=== PATIENT | female | born 1985 | race Two or more races ===

== ENCOUNTER 2023-06-05 11:15 | Emergency (ER) | payer OTHER ==
[~2023-06-05] VITALS: Ht 167.6 cm; Wt 113.4 kg
[2023-06-05] MEDS ORDERED: BUTALB/ACETAMINOPHEN/CAFFEINE 1 TAB TABLET PO ONE (12:15)
[2023-06-05] MEDS ORDERED: ONDANSETRON HCL 2 MG/ML VIAL IV ONE (12:15)
[2023-06-05] MEDS ORDERED: MEPERIDINE HCL/PF 50 MG/ML VIAL IM ONE (12:15)
[2023-06-05] MEDS ORDERED: RINGERS SOLUTION,LACTATED 1,000 ML IV SCH (12:15)
[2023-06-05 12:51] LABS: HEMATOCRIT 35.4 % (36.0-45.00); HEMOGLOBIN 12.4 g/dL (12.0-15.00); MEAN CELL VOLUME 88.6 fL (80.00-100.00); MEAN CORPUSCULAR HEMOGLOBIN 30.9 pg (27.00-32.0); MEAN CORPUSCULAR HGB CONC 34.9 g/dl (32.0-36.0); PLATELET COUNT 212 K/uL (150-450); RED CELL DISTRIBUTION WIDTH 14.3 % (11.5-14.5)
[2023-06-05 14:03] LABS: URINE APPEARANCE Cloudy; URINE BILIRRUBIN Negative (NEGATIVE); URINE BLOOD Negative; URINE COLOR Dark Yellow; URINE GLUCOSE Negative (NEGATIVE); URINE LEUKOCYTE Small; URINE NITRATE Negative; URINE PROTEIN 30 (NEGATIVE)
[2023-06-05 14:06] LABS: URINE BACTERIA 4300.3 uL (0.0-1933); URINE EPITHELIAL CELLS 94.1 uL (0.0-38.8); URINE RBC 23.7 uL (0.0-20.8); URINE WBC 57.5 uL (0.0-23.2)
[2023-06-05 14:06] LABS: ALBUMIN 3.1 gm/dL (3.4-5.0); BILIRUBIN TOTAL 0.29 mg/dL (0.3-1.2); CALCIUM 9.2 mg/dL (8.5-10.1); CREATININE SERUM 0.66 mg/dL (0.55-1.02); GFR 101.33; POTASSIUM 4.23 mEq/L (3.5-5.1); TOTAL PROTEIN 8.1 gm/dL (6.4-8.2)
[2023-06-05 14:31] LABS: URINE MUCUS SCANT
== END 2023-06-05 18:14 | disposition home or self-care (01) ==
LOC: ER 11:15 → EDBD 11:15 → ER 14:56
PROVIDERS: General Practice
DX: O99.891 Other specified diseases and conditions complicating pregnancy (principal); Z3A.13 13 weeks gestation of pregnancy; R51.9 Headache, unspecified